=== PATIENT | male | born 1935 | race Caucasian/White ===

== ENCOUNTER 2018-03-19 09:19 | Emergency (ER) | payer MEDICARE ==
[~2018-03-19] VITALS: Ht 180.3 cm; Wt 62.1 kg
[~2018-03-19 09:19] MED LIST: CRESTOR20 MG PO; NORVASC5 MG PO; PLAVIX75 MG PO
--- OUTSIDE RECORDS SUMMARY | 2018-03-19 09:22 | XMS REPORT | Clinical Summary ---
Author Author [place] [facility] Address Unknown Phone Unavailable Care Team Providers Care Center Lead Consultant Name Role Phone Bee Alberto MD PCP Allergies Active Allergy Reactions Severity Noted Date Comments Codeine Itching 01/01/2017 Current Medications Prescription Sig. Disp. Refills Start End Date Status Date fluconazole (DIFLUCAN) Take 1 tablet (200 mg 30 tablet 11 02/04/20 Active 200 MG tablet total) by mouth daily for 17 30 days. ciprofloxacin HCl (CIPRO) Take 1 tablet (250 mg 90 tablet 3 09/28/20 Active 250 MG tablet total) by mouth daily for 17 90 days. ciprofloxacin HCl (CIPRO) Take 1 tablet (250 mg 90 tablet 3 02/21/20 09/28/20 Discontin 250 MG tablet total) by mouth daily for 17 17 ued 90 days. Active Problems Problem Noted Date AAA (abdominal aortic aneurysm) 01/01/2017 Essential hypertension 12/30/2016 Chest pain 12/28/2016 Ruptured abdominal aortic aneurysm 12/28/2016 Saccular aneurysm 12/28/2016 AAA (abdominal aortic aneurysm, ruptured) 12/28/2016 Acute respiratory insufficiency, postoperative 12/28/2016 Postoperative anemia due to acute blood loss 12/28/2016 Renal insufficiency 12/28/2016 Postoperative pain 12/28/2016 Encounters Date Type Specialty Care Team Description 10/08/2017 Documentation Infectious Diseases Ewa Granados RN 09/28/2017 Orders Only Infectious Diseases Ewa Granados RN 07/06/2017 Documentation Infectious Diseases Ewa Granados RN after 03/18/2017 Immunizations Name Dates Previously Given Next Due Influenza, Unspecified 11/30/2016 Family History Relation Name Status Comments Mother Social History Tobacco Use Types Packs/Day Years Used Date Never Smoker Alcohol Use Drinks/Week oz/Week Comments No Sex Assigned at Date Recorded Not on file Last Filed Vital Signs Not on file Plan of Treatment Health Maintenance Due Date Last Done Comments SHINGRIX VACCINE (#1) 1983 ZOSTER VACCINE 1993 PNEUMOCOCCAL 1998 POLYSACCHARIDE VACCINE AGE 65 AND OVER PNEUMOCOCCAL-13 1998 INFLUENZA VACCINE 05/19/2018 11/30/2016 Implants Implanted Type Area Credit Underwriter Device Expiration Model / Identifier Date Serial / Lot Pacemaker Pacemaker Stent Stent Chamber Sgl Martin Dry Suct 1wy Vlv Surgical N/A: N/A TELEFLEX S 1100 Adlt Pedi - [id number] Implants; MEDICAL [id number] / Implanted: 12/28/2016 (Quantity not Expanders; / on file) Extenders; Surgical Wires Graft Vasclr Gelweave Str Plystr Vascular N/A: N/A SULZER VASCUTEK 100205 / 60cm 24mm - [id number] Graft / Implanted: Qty: 1 on 12/28/2016 by [id number] Paola Jacques MD [id number] [place] Perph Vasclr Ptfe [id number] Vascular N/A: N/A BARD PERIPHERAL 244220 / 1.65mm - [id number] Graft VASCULAR / Implanted: Qty: 1 on 12/28/2016 by Paola Jacques MD Results Not on fileafter 03/18/2017 Insurance Payer Benefit Subscriber ID Type Phone Address Plan / Group MEDICARE MEDICARE xxxxxxxxxx Medicare [place] PART A AND B AARP AARP xxxxxxxxxxx Commercial SUPPLEMENT
[2018-03-19 10:42] LABS: BASOPHILS # (AUTO) 0.1 (0.0-0.1); BASOPHILS % 0.6 % (0.0-1.0); EOSINOPHILS # (AUTO) 0.3 (0.0-0.4); EOSINOPHILS % 2.8 % (0.0-6.0); HEMATOCRIT 38.2 % (38.2-49.6); HEMOGLOBIN 12.8 g/dL (14.0-18.0); LYMPHOCYTES # (AUTO) 3.5 (1.0-3.2); LYMPHOCYTES % 36.4 % (18.0-39.1); MEAN CORPUSCULAR HEMOGLOBIN 32.7 pg (28-32); MEAN CORPUSCULAR HGB CONC 33.5 g/dL (31-35); MEAN CORPUSCULAR VOLUME 97.7 fL (81-99); MONOCYTES # (AUTO) 1.2 (0.2-0.8); MONOCYTES % 12.2 % (4.4-11.3); NEUTROPHILS # (AUTO) 4.6 (2.1-6.9); NEUTROPHILS % 47.6 % (38.7-80.0); PLATELET COUNT 179 x10e3/uL (140-360); RED BLOOD COUNT 3.91 x10e6/uL (4.3-5.7); RED CELL DISTRIBUTION WIDTH 14.2 % (11.7-14.4)
[2018-03-19 10:51] LABS: BILIRUBIN,URINE NEGATIVE (NEGATIVE); CLARITY,URINE CLEAR (CLEAR); COLOR,URINE YELLOW (YELLOW); KETONES,URINE NEGATIVE (NEGATIVE); LEUKOCYTE ESTERASE ,URINE NEGATIVE (NEGATIVE); NITRITE,URINE NEGATIVE (NEGATIVE); PROTEIN,URINE DIPSTICK NEGATIVE (NEGATIVE); URINE UROBILINOGEN 0.2 mg/dL (0.2 - 1)
[2018-03-19 10:54] LABS: INR 1.14; PROTHROMBIN TIME 13.7 seconds (11.9-14.5)
[2018-03-19 10:55] LABS: PARTIAL THROMBOPLASTIN TIME 34.8 seconds (23.8-35.5)
[2018-03-19 11:03] LABS: ALBUMIN 4.3 g/dL (3.5-5.0); ALBUMIN/GLOBULIN RATIO 1.1 (0.8-2.0); ANION GAP 14.7 mmol/L (8-16); CALCIUM 10.3 mg/dL (8.4-10.2); CREATININE, SERUM 1.39 mg/dL (0.72-1.25); POTASSIUM 3.7 mmol/L (3.5-5.1)
[2018-03-19 11:06] LABS: BACTERIA,URINE RARE /HPF; EPITHELIAL CELLS,URINE RARE /LPF; WBC,URINE (MAN) 0-5 /HPF (0-5)
[2018-03-19 11:11] LABS: DIGOXIN 0.92 ng/mL (0.8-2.0)
[2018-03-19] MEDS ORDERED: SODIUM CHLORIDE 0.9% 1000ML 1,000 ML IV STA (12:44)
[2018-03-19] MEDS ORDERED: SODIUM CHLORIDE 0.9% 50ML 50 ML ONE (14:05)
[2018-03-19] MEDS ORDERED: IOPAMIDOL 370 MG/ML 200 ML INFUS..BTL INJ ONE (14:06)
[2018-03-19] MEDS ORDERED: SODIUM CHLORIDE 0.9% 250ML 250 ML ONE (14:14)
--- NOTE | 2018-03-19 16:22 | Diagnostic Imaging Report ---
CT UROGRAM Indication: Hematuria COMPARISON: None TECHNIQUE: Thin section helical scan through the abdomen and pelvis before and after the intravenous administration of 100 cc of low osmolar, non-ionic contrast by dynamic enhanced scanning protocol. Delayed images were obtained through the collecting system, ureters and bladder. 3-D reformations were performed on a separate workstation. RADIATION DOSE: Total DLP: 706.09 mGy*cm Estimated effective dose: (DLP x 0.015 x size factor) mSv CTDIvol has been reviewed. It is below the limits set by the Radiation Protocol Committee (RPC). Findings: Lung Bases: Diffusely hyperinflated with paraseptal honeycombing and interlobular septal thickening suggestive of early fibrosis. There is cylindrical bronchiectasis and mild bronchial wall thickening suggestive of chronic bronchitis. Pacemaker wires are present in the right atrium, right ventricle, and coronary sinus. The heart is mildly enlarged with heavy calcifications in the coronary arteries. Liver: Normal attenuation. Multiple low attenuating lesions measure up to 12 mm and are suggestive of cysts. The liver capsule is mildly lobulated in contour. Gallbladder: Absent. No biliary ductal dilatation. Pancreas: Normal attenuation without mass or ductal dilatation. Spleen: Normal attenuation and size without mass. Adrenal Glands: Mild thickening of the glands without mass Pelvis: Bowel: The stomach is normal. Small bowel and large bowel are normal in diameter with normal wall thickness. There are chain sutures at the sigmoid colon. Moderate burden of stool in the distal sigmoid colon/rectum. No associated inflammation or lymphadenopathy. The appendix is not visualized and may be absent or collapsed.. Lymph nodes: No enlarged abdominal or retroperitoneal lymph nodes. Aorta: There are calcifications throughout the aorta. An aortobifemoral bypass graft is present and is patent. Bones: Visualized portions of median sternotomy are well healed. There is wedging of the T10 and T11 vertebral bodies. No focal osseous lesions. A bone island in the left pedicle of L5 measures 9 mm.. Kidneys, ureters and bladder: Unenhanced series: Right Kidney : No calculus in the collecting system. There are renal vascular calcifications in the hilum. No soft tissue mass. Left Kidney: Absent. No mass in the nephrectomy bed. Bladder: Well distended and is normal. The prostate gland and seminal vesicles are absent.. Contrast enhanced series: Right Kidney: Normal enhancement. 2 low attenuating lesions in the anterior interpolar cortex and one low attenuating lesion in the lower pole measure less than 5 mm and have the appearance of cysts. There are no enhancing lesions. Left Kidney: Absent. No evidence of mass in the nephrectomy bed.. Excretory phase: The right renal collecting system is well opacified without intraluminal filling defect. The proximal and mid right ureter are opacified without narrowing or intraluminal filling defect. The distal ureters are not opacified. There is no bladder wall thickening or intraluminal filling defect in the bladder. IMPRESSION: 1. No evidence of renal calculus. 2. Tiny nonenhancing lesions in the right kidney are suggestive of cysts. 3. No filling defects in the right renal collecting system or opacified portion of the ureter to explain hematuria. 4. No mural thickening or intraluminal filling defect in the bladder to explain hematuria. Further characterization with cystoscopy is recommended. 5. Status post left nephrectomy without evidence of tumor recurrence or metastasis. 6. Aortobifemoral bypass graft is patent. Cardiomegaly and pacemaker wires as described above. Significant atherosclerosis. 7. Status post cholecystectomy. Normal biliary tree. 8. Low attenuating hepatic lesions have the appearance of cysts. 9. Status post radical prostatectomy. Postoperative changes of the sigmoid colon with moderate stool burden. 10. COPD and chronic bronchitis. Thank you for your referral. Signed by: Dr. Davi Winslow MD on 03/19/2018 4:18 PM
== END 2018-03-19 17:51 | disposition home or self-care (01) ==
LOC: ER 09:19
DX: R31.29 Other microscopic hematuria (principal); I10 Essential (primary) hypertension; I51.9 Heart disease, unspecified; Z85.46 Personal history of malignant neoplasm of prostate; Z85.51 Personal history of malignant neoplasm of bladder
CPT/HCPCS: 36415; 74178; 80053; 80162; 81001; 82150; 83690; 85025; 85610; 85730; 87086; 93005; 99284; J7030; J7050; Q9967

== ENCOUNTER → 2018-04-29 | Day surgery (SDC) | payer MEDICARE ==
[2018-04-27 13:56] LABS: BASOPHILS # (AUTO) 0.1 (0.0-0.1); BASOPHILS % 0.6 % (0.0-1.0); EOSINOPHILS # (AUTO) 0.3 (0.0-0.4); EOSINOPHILS % 3.7 % (0.0-6.0); HEMATOCRIT 35.3 % (38.2-49.6); HEMOGLOBIN 11.8 g/dL (14.0-18.0); LYMPHOCYTES # (AUTO) 2.9 (1.0-3.2); LYMPHOCYTES % 34.8 % (18.0-39.1); MEAN CORPUSCULAR HEMOGLOBIN 32.3 pg (28-32); MEAN CORPUSCULAR HGB CONC 33.4 g/dL (31-35); MEAN CORPUSCULAR VOLUME 96.7 fL (81-99); MONOCYTES % 12.4 % (4.4-11.3); NEUTROPHILS # (AUTO) 4.1 (2.1-6.9); NEUTROPHILS % 48.4 % (38.7-80.0); PLATELET COUNT 140 x10e3/uL (140-360); RED BLOOD COUNT 3.65 x10e6/uL (4.3-5.7); RED CELL DISTRIBUTION WIDTH 14.6 % (11.7-14.4)
[2018-04-27 14:29] LABS: ANION GAP 12.3 mmol/L (8-16); CALCIUM 9.9 mg/dL (8.4-10.2); CREATININE, SERUM 1.27 mg/dL (0.72-1.25); POTASSIUM 4.3 mmol/L (3.5-5.1)
--- NOTE | 2018-04-27 15:20 | Diagnostic Imaging Report ---
PROCEDURE: Frontal and lateral views of the chest. COMPARISON: None. INDICATIONS: PREOPERATIVE CHEST XRAY FOR BLADDER SURGERY FINDINGS: Lines/tubes: Multilead left upper chest cardiac device. Lungs: The lungs are well inflated and grossly clear. There is no evidence of consolidation or pulmonary edema. Pleura: There is no pleural effusion or pneumothorax. Heart and mediastinum: Borderline to mildly enlarged cardiac silhouette. Bones: No acute bony abnormality. Generalized osteopenia. Degenerative changes in the thoracic spine. Anterior wedging of a lower thoracic vertebral body (probably the T12 vertebral body), consistent with age-indeterminate compression deformity. Midline sternotomy wires. IMPRESSION: 1. No acute cardiopulmonary abnormalities. Kareem Cobian M.D. Dictated by: Kareem Cobian M.D. on 04/27/2018 at 15:24 Electronically approved by: Kareem Cobian M.D. on 04/27/2018 at 15:24
[~2018-04-29] MED LIST changes: +ACETAMINOPHEN 1000 MG/100 ML IV ONE; +ASPIR 8181 MG PO; +BELLADONNA/OPIUM 30 MG SUPP RC ONE; +CEFTRIAXONE SOD 1 GM VIAL ONE; +CIPRO500 MG PO; +DIFLUCAN200 MG PO; +DIGOXIN125 MCG PO; +FENTANYL CITRATE/PF 100MCG/2 ML INJ ONE; +HYDRALAZINE HCL25 MG PO; +IOPAMIDOL 300MG/ML 50ML INFUS..BTL IV ONE; +LIDOCAINE HCL 2% LOCAL INJ 5 ML SDV VIAL INJ ONE; +LIPITOR20 MG PO; +LOPRESSOR25 MG PO; +OMEGA-31000 MG PO; +ONDANSETRON HCL INJ 2 MG/ML VIAL ONE; +PHENYLEPHRINE HCL 1% 10 MG/ML VIAL ONE; +PROPOFOL IV EMULSION 10 MG/ML 20 ML VIAL ONE; +SEVOFLURANE INHAL SOLN 250 ML PEN BTL ONE
--- NOTE | 2018-06-17 01:23 | Operative Report ---
DATE OF PROCEDURE: April 29, 2018 PREOPERATIVE DIAGNOSIS: Gross hematuria. POSTOPERATIVE DIAGNOSES 1. Left lateral bladder cancer, approximately 3 to 4 cm in size. 2. Gross hematuria. OPERATIONS PERFORMED 1. Cystourethroscopy with bilateral ureteral catheterization and retrograde ureteropyelography (separate procedure performed for the hematuria). 2. Interpretation of retrograde ureteropyelography. 3. Cystourethroscopy with transurethral resection of medium-sized bladder tumor. ANESTHESIA: General. COMPLICATIONS: None. CLINICAL SUMMARY: Jaylan Blackwell is an 82-year-old man who had prior bladder cancer. The patient has undergone previous BCG immunotherapy. The patient had a prior left nephrectomy due to vascular problems associated with the patient's abdominal aortic aneurysm. The patient is also status post radical retropubic prostatectomy. The patient has gross hematuria and is brought to the operating room for evaluation. He is aware of the risks of bleeding, infection, injury to adjacent structures, need for additional procedures, and elected to proceed. OPERATIVE PROCEDURE IN DETAIL: Informed consent was verified. Jaylan Blackwell was properly identified, taken to the operating room, placed on the cystoscopy table in supine position. Anesthesia was uneventfully begun. The patient was then carefully and gently repositioned in dorsal lithotomy position with all pressure points well padded. His genitalia were prepared and draped in usual sterile fashion. The 22.5-Austrian cystoscope sheath with visual obturator in place was atraumatically inserted into the patient's urethra. It was guided down the unremarkable distal urethra through the normal sphincteric region through the open urethrovesical anastomosis. Initially, the patient's bladder with panendoscopy revealed normally positioned and configured ureteral orifices. Grade 2 trabeculations and tumor in the left lateral wall. An 8-Austrian catheter was used to cannulate each ureter and retrograde ureteropyelography was performed. INTERPRETATION OF RETROGRADE URETEROPYELOGRAPHY: Contrast was instilled in the retrograde fashion bilaterally. On the right hand side, there were no tumors, no stones and no diverticula. Unobstructed drainage was observed. The left hand side exhibited that two-thirds of the ureter has a ureteral stump. No suspicious lesions were identified in this ureteral stump. Cold cup biopsy forceps were then utilized to resect the bladder tumors present in the left lateral wall. There were actually 3 bladder tumors in a large patch extending approximately 3 to 4 cm. Once all tumors were excised with the cold cup biopsies, Bryon electrode was utilized to fulgurate the base and the surrounding margins. Excellent hemostasis was obtained. Patient's bladder was drained and he was uneventfully reversed from anesthesia and taken to recovery room in stable condition. There were no complications during the procedure. He tolerated the procedure well. Explicit postoperative instructions were given. We will plan on returning the patient in the office in approximately 1-1/2 months. He will need a second-look cystoscopy. Job#: [id number] BERRY
== END | disposition home or self-care (01) ==
LOC: OR 05:19
PROVIDERS: ATTEND Urology
DX: C67.2 Malignant neoplasm of lateral wall of bladder (principal); C61 Malignant neoplasm of prostate; N32.89 Other specified disorders of bladder; N28.1 Cyst of kidney, acquired; N39.41 Urge incontinence; N50.0 Atrophy of testis; Z90.5 Acquired absence of kidney; Z90.79 Acquired absence of other genital organ(s); Z98.0 Intestinal bypass and anastomosis status; I10 Essential (primary) hypertension; I71.4 Abdominal aortic aneurysm, without rupture; I48.91 Unspecified atrial fibrillation; I25.810 Atherosclerosis of coronary artery bypass graft(s) without angina pectoris; Z88.6 Allergy status to analgesic agent; Z01.812 Encounter for preprocedural laboratory examination; Z01.818 Encounter for other preprocedural examination; Z79.82 Long term (current) use of aspirin; Z79.02 Long term (current) use of antithrombotics/antiplatelets; Z87.442 Personal history of urinary calculi; Z95.1 Presence of aortocoronary bypass graft; Z95.0 Presence of cardiac pacemaker; Z95.5 Presence of coronary angioplasty implant and graft; Z87.891 Personal history of nicotine dependence
CPT/HCPCS: 36415; 52005; 52235; 71046; 74420; 80048; 85025; 88305; C1758; J0696; J2001; J2370; J2405; Q9967

== ENCOUNTER → 2020-04-02 | Day surgery (SDC) | payer MEDICARE, OTHER ==
[2020-03-29 14:46] LABS: BASOPHILS # (AUTO) 0.1 (0.0-0.1); BASOPHILS % 0.6 % (0.0-1.0); EOSINOPHILS # (AUTO) 0.3 (0.0-0.4); EOSINOPHILS % 2.4 % (0.0-6.0); HEMATOCRIT 39.8 % (38.2-49.6); HEMOGLOBIN 12.6 g/dL (14.0-18.0); LYMPHOCYTES # (AUTO) 4.6 (1.0-3.2); LYMPHOCYTES % 43.3 % (18.0-39.1); MEAN CORPUSCULAR HEMOGLOBIN 30.4 pg (28-32); MEAN CORPUSCULAR HGB CONC 31.7 g/dL (31-35); MEAN CORPUSCULAR VOLUME 95.9 fL (81-99); MONOCYTES # (AUTO) 1.4 (0.2-0.8); MONOCYTES % 13.6 % (4.4-11.3); NEUTROPHILS # (AUTO) 4.2 (2.1-6.9); NEUTROPHILS % 39.7 % (38.7-80.0); PLATELET COUNT 112 x10e3/uL (140-360); RED BLOOD COUNT 4.15 x10e6/uL (4.3-5.7); RED CELL DISTRIBUTION WIDTH 15.7 % (11.7-14.4)
--- NOTE | 2020-03-29 15:39 | Diagnostic Imaging Report ---
EXAMINATION: CHEST 2 VIEWS INDICATION: Pre-operative COMPARISON: None FINDINGS: LINES/TUBES:Left chest pacer. LUNGS:The lungs are hyperinflated. There is perihilar fullness and indistinctness of the pulmonary vasculature. PLEURA:No pleural effusion or pneumothorax. MEDIASTINUM:The cardiomediastinal silhouette appears normal in size and shape. Atherosclerotic calcifications of the thoracic aorta. BONES/SOFT TISSUES:No acute osseous injury. Sternotomy wires in place. Degenerative changes of the spine. ABDOMEN:No free air under the diaphragm. Status post cholecystectomy. IMPRESSION: No focal pneumonia. Hyperinflated lungs and mild pulmonary interstitial edema. Signed by: Zoya Luna MD on 03/29/2020 3:35 PM
[~2020-04-02] MED LIST changes: -ACETAMINOPHEN 1000 MG/100 ML IV ONE; +B&O 60MG R/S 60 MG SUPP PR ONE; -BELLADONNA/OPIUM 30 MG SUPP RC ONE; +BENICAR20 MG PO; -CEFTRIAXONE SOD 1 GM VIAL ONE; +CEFTRIAXONE SOD 1 GM/NS 50 ML 50 ML IV ONE; +ETOMIDATE 2 MG/ML 10 ML INJ IV ONE; +LYRICA150 MG PO; -ONDANSETRON HCL INJ 2 MG/ML VIAL ONE; +ONDANSETRON HCL INJ 2MG/ML 2ML 2 MG/ML VIAL ONE; -PROPOFOL IV EMULSION 10 MG/ML 20 ML VIAL ONE
[2020-04-02 09:45] VITALS: BP 137/84
--- NOTE | 2020-05-08 04:02 | Operative Report ---
DATE OF PROCEDURE: 04/02/2020 SURGEON: Ra Castellon MD PREOPERATIVE DIAGNOSES: 1. Recurrent bladder cancer. 2. Microhematuria. POSTOPERATIVE DIAGNOSES: 1. Recurrent bladder cancer. 2. Microhematuria. OPERATIONS PERFORMED: 1. Cystourethroscopy with bilateral ureteral catheterization and retrograde ureteropyelography (separate procedure performed for the microhematuria). 2. Interpretation of retrograde ureteropyelography. 3. Cystourethroscopy with transurethral resection of medium-sized approximately 3 cm bladder tumor (separate procedure performed for the tumor). ANESTHESIA: General. COMPLICATIONS: None. CLINICAL SUMMARY: Jaylan Blackwell is an 84-year-old man with recurrent bladder cancer. He has had a left nephrectomy as well as a radical retropubic prostatectomy. He is brought for the above procedures to manage a tumor found on surveillance cystoscopy. He is aware of the risks of bleeding, infection, injury to adjacent structures, need for additional procedures and elected to proceed. OPERATIVE PROCEDURE IN DETAIL: Informed consent was verified. Jaylan Blackwell was properly identified and taken to the operating room, placed on the cystoscopy table in supine position. Anesthesia was uneventfully begun. The patient was then carefully and gently repositioned in dorsal lithotomy position with all pressure points were padded. His genitalia were prepared and draped in usual sterile fashion. Cystoscope sheath with the visual obturator in place, was atraumatically inserted into the patient's urethra. It was guided down to the relatively unremarkable urethra through normal sphincteric region, through an open urethrovesical anastomosis. There was some tissue posteriorly just inside the bladder neck, but it appears to be mostly scar and does not seem to be obstructing. Panendoscopy revealed grade 2-3 trabeculations in the tumor anteriorly. This tumor was partially resected with cold cup biopsy forceps for histopathology analysis and then the Bugbee electrode was then utilized to vaporize the remaining of the tumor and fulgurate the base. Hemostasis was achieved. Ureteral catheter was used to cannulate each ureter and retrograde ureteropyelograms were performed. Interpretation of retrograde ureteropyelography contrast was instilled in a retrograde fashion bilaterally. The right side was unremarkable except for some tortuosity of the ureter. There was unobstructed drainage noted and there were no suspicious lesions. The left side exhibited a blind-ending ureter to the prior nephrectomy, but there were no filling defects within the ureter. An unobstructed drainage was observed fluoroscopically bilaterally. The patient's bladder was drained. He was uneventfully reversed from anesthesia and taken to recovery room in stable condition. There were no complications to the procedure. He tolerated the procedure well. Explicit postop instructions were given and we will follow the patient up in the office and of course, on a long-term basis. MD NITHYA Wiggins/TONO /[id number]
== END | disposition home or self-care (01) ==
LOC: OR 05:25
PROVIDERS: ATTEND Urology
DX: C67.9 Malignant neoplasm of bladder, unspecified (principal); N32.89 Other specified disorders of bladder; I25.10 Atherosclerotic heart disease of native coronary artery without angina pectoris; I48.91 Unspecified atrial fibrillation; Z88.6 Allergy status to analgesic agent; Z01.810 Encounter for preprocedural cardiovascular examination; Z01.812 Encounter for preprocedural laboratory examination; Z01.818 Encounter for other preprocedural examination; Z11.59 Encounter for screening for other viral diseases; Z79.02 Long term (current) use of antithrombotics/antiplatelets; Z90.5 Acquired absence of kidney; Z90.79 Acquired absence of other genital organ(s); Z95.5 Presence of coronary angioplasty implant and graft; Z95.0 Presence of cardiac pacemaker
CPT/HCPCS: 36415; 52005; 52235; 71046; 74420; 85025; 87635; 88305; 93005; C1758; J0696; J2001; J2370; J2405; J3010; Q9967; 88307; U0002

== ENCOUNTER 2023-01-02 21:25 | Inpatient (IN) | payer MEDICARE ==
[~2023-01-02] VITALS: Ht 180.3 cm; Wt 62.4 kg
[~2023-01-02 21:25] MED LIST changes: -B&O 60MG R/S 60 MG SUPP PR ONE; -CEFTRIAXONE SOD 1 GM/NS 50 ML 50 ML IV ONE; -ETOMIDATE 2 MG/ML 10 ML INJ IV ONE; -IOPAMIDOL 300MG/ML 50ML INFUS..BTL IV ONE; -LIDOCAINE HCL 2% LOCAL INJ 5 ML SDV VIAL INJ ONE; -ONDANSETRON HCL INJ 2MG/ML 2ML 2 MG/ML VIAL ONE; -PHENYLEPHRINE HCL 1% 10 MG/ML VIAL ONE; -SEVOFLURANE INHAL SOLN 250 ML PEN BTL ONE
[2023-01-02 21:49] LABS: CLARITY,URINE CLEAR (CLEAR); COLOR,URINE YELLOW (YELLOW); LEUKOCYTE ESTERASE ,URINE NEGATIVE (NEGATIVE); NITRITE,URINE NEGATIVE (NEGATIVE)
[2023-01-02 21:50] LABS: KETONES,URINE NEGATIVE (NEGATIVE); PROTEIN,URINE DIPSTICK 1+ (NEGATIVE); URINE UROBILINOGEN 0.2 mg/dL (0.2 - 1)
[2023-01-02 21:55] LABS: BACTERIA,URINE RARE /HPF; EPITHELIAL CELLS,URINE FEW /LPF; WBC,URINE (MAN) 0-5 /HPF (0-5)
[2023-01-02 22:06] LABS: BASOPHILS # (AUTO) 0.1 (0.0-0.1); BASOPHILS % 0.8 % (0.0-1.0); EOSINOPHILS # (AUTO) 0.3 (0.0-0.4); EOSINOPHILS % 3.2 % (0.0-6.0); LYMPHOCYTES # (AUTO) 2.9 (1.0-3.2); LYMPHOCYTES % 31.6 % (18.0-39.1); MEAN CORPUSCULAR HEMOGLOBIN 23.3 pg (28-32); MEAN CORPUSCULAR HGB CONC 27.6 g/dL (31-35); MEAN CORPUSCULAR VOLUME 84.5 fL (81-99); MONOCYTES # (AUTO) 1.5 (0.2-0.8); MONOCYTES % 16.3 % (4.4-11.3); NEUTROPHILS # (AUTO) 4.4 (2.1-6.9); NEUTROPHILS % 47.7 % (38.7-80.0); PLATELET COUNT 177 x10e3/uL (140-360); RED BLOOD COUNT 2.96 x10e6/uL (4.3-5.7); RED CELL DISTRIBUTION WIDTH 20.5 % (11.7-14.4)
[2023-01-02 22:07] LABS: HEMOGLOBIN 7.1 g/dL (14.0-18.0)
[2023-01-02 22:24] LABS: ALBUMIN 3.5 g/dL (3.5-5.0); ALBUMIN/GLOBULIN RATIO 1.1 (0.8-2.0); ANION GAP 15.5 mmol/L (8-16); CALCIUM 9.4 mg/dL (8.4-10.2); CREATININE, SERUM 1.6 mg/dL (0.72-1.25)
[2023-01-02 22:25] LABS: POTASSIUM 5.5 mmol/L (3.5-5.1)
[2023-01-02] MEDS ORDERED: ALBUTEROL SULF 0.083% NEB SOLN 3 ML NEB NEB STA (22:27)
[2023-01-02] MEDS ORDERED: SODIUM BICARBONATE 8.4% 50 ML VIAL IV STA (22:27)
[2023-01-02] MEDS ORDERED: DEXTROSE 50% SYRINGE 50 ML IV STA (22:27)
[2023-01-02] MEDS ORDERED: INSULIN REGULAR, HUMAN 100 UNIT/1 ML IV ONE (22:30)
[2023-01-02] MEDS ORDERED: SODIUM CHLORIDE 0.9% 1000ML 1,000 ML IV ONE (22:30)
[2023-01-02] MEDS ORDERED: FUROSEMIDE INJ 10 MG/ML 4 ML VIAL IV ONE (22:30)
[2023-01-02] MEDS ORDERED: CALCIUM GLUCONATE 10% INJ 9.3 MEQ in SODIUM CHLORIDE 0.9% 100 ML IV ONE (22:30)
[2023-01-02] MEDS ORDERED: SODIUM CHLORIDE 0.9% 100 ML ONE (22:51)
[2023-01-02] MEDS ORDERED: CALCIUM GLUC 1 G/50 ML NACL 50 ML IV ONE ×2 (22:52→23:10)
[2023-01-02] MEDS ORDERED: SODIUM BICARBONATE 8.4% SYRING 100 ML ONE (22:52)
[2023-01-02] MEDS ORDERED: SODIUM CHLORIDE FLUSH 10 ML SYR INJ PRN (23:00)
[2023-01-02] MEDS ORDERED: ONDANSETRON HCL INJ 2MG/ML 2ML 2 MG/ML VIAL IV PRN (23:00)
[2023-01-03] MEDS ORDERED: PREGABALIN 75 MG CAP PO ONE (01:00)
[2023-01-03] MEDS ORDERED: PREGABALIN 50 MG CAP ONE (01:14)
[2023-01-03 05:38] LABS: BASOPHILS # (AUTO) 0.1 (0.0-0.1); BASOPHILS % 0.7 % (0.0-1.0); EOSINOPHILS # (AUTO) 0.2 (0.0-0.4); EOSINOPHILS % 2.2 % (0.0-6.0); HEMATOCRIT 22.9 % (38.2-49.6); LYMPHOCYTES # (AUTO) 2.4 (1.0-3.2); LYMPHOCYTES % 32.9 % (18.0-39.1); MEAN CORPUSCULAR HEMOGLOBIN 23.4 pg (28-32); MEAN CORPUSCULAR HGB CONC 27.9 g/dL (31-35); MEAN CORPUSCULAR VOLUME 83.6 fL (81-99); MONOCYTES # (AUTO) 1.3 (0.2-0.8); MONOCYTES % 17.9 % (4.4-11.3); NEUTROPHILS # (AUTO) 3.4 (2.1-6.9); RED BLOOD COUNT 2.74 x10e6/uL (4.3-5.7); RED CELL DISTRIBUTION WIDTH 20.7 % (11.7-14.4)
[2023-01-03 05:45] LABS: HEMOGLOBIN 6.4 g/dL (14.0-18.0)
[2023-01-03] MEDS ORDERED: SODIUM CHLORIDE 0.9% 250ML 250 ML IV ONE (05:45)
[2023-01-03 05:46] LABS: PLATELET COUNT 143 x10e3/uL (140-360)
[2023-01-03 06:04] LABS: ALBUMIN 3.1 g/dL (3.5-5.0); ALBUMIN/GLOBULIN RATIO 1.1 (0.8-2.0); ALKALINE PHOSPHATASE 42 IU/L (40-150); ANION GAP 12.9 mmol/L (8-16); BLOOD UREA NITROGEN 25 mg/dL (7-26); BUN/CREATININE RATIO 17 (6-25); CALCIUM 9.3 mg/dL (8.4-10.2); CARBON DIOXIDE 35 mmol/L (22-29); CHLORIDE 100 mmol/L (98-107); CREATININE, SERUM 1.43 mg/dL (0.72-1.25); GLUCOSE 95 mg/dL (74-118); POTASSIUM 3.9 mmol/L (3.5-5.1); SODIUM 144 mmol/L (136-145)
[2023-01-03 06:06] LABS: ALANINE AMINOTRANSFERASE < 6 IU/L (0-55)
[2023-01-03] MEDS ORDERED: PREGABALIN 75 MG CAP PO SCH (09:00)
[2023-01-03] MEDS ORDERED: FUROSEMIDE40 MG PO (09:37)
[2023-01-03] MEDS ORDERED: DIOVAN80 MG PO ×2 (09:37→12:39)
[2023-01-03] MEDS ORDERED: MIDODRINE HCL2.5 MG PO (09:40)
[2023-01-03] MEDS ORDERED: ASPIRIN81 MG PO (09:40)
[2023-01-03] MEDS ORDERED: AMLODIPINE BESYL5 MG PO (09:40)
[2023-01-03 11:00] VITALS: BP 124/58
[2023-01-03 12:32] VITALS: BP 124/58
[2023-01-03 14:08] VITALS: BP 124/58
[2023-01-03 20:00] VITALS: BP 127/51
[2023-01-03] MEDS: PREGABALIN 50 MG CAP PO SCH (21:45)
[2023-01-03] MEDS: ATORVASTATIN 20 MG TAB PO SCH (21:46)
[2023-01-04] VITALS (8 sets, daily range): BP systolic 126–142; BP diastolic 55–68
[2023-01-04 05:18] LABS: ANION GAP 13.2 mmol/L (8-16); CREATININE, SERUM 1.33 mg/dL (0.72-1.25); POTASSIUM 4.2 mmol/L (3.5-5.1)
[2023-01-04 08:04] LABS: HEMATOCRIT 30.4 % (38.2-49.6); HEMOGLOBIN 8.8 g/dL (14.0-18.0); MEAN CORPUSCULAR HEMOGLOBIN 24.9 pg (28-32); MEAN CORPUSCULAR HGB CONC 28.9 g/dL (31-35); MEAN CORPUSCULAR VOLUME 86.1 fL (81-99); PLATELET COUNT 139 x10e3/uL (140-360); RED BLOOD COUNT 3.53 x10e6/uL (4.3-5.7); RED CELL DISTRIBUTION WIDTH 20.3 % (11.7-14.4)
[2023-01-04 08:40] LABS: EOSINOPHILS % (MANUAL) 3 % (0-7); LYMPHOCYTES % (MANUAL) 34 % (19-48); MONOCYTES % (MANUAL) 19 % (3.4-9.0); NEUTROPHILS % (MANUAL) 43 % (40-74); PLATELET ESTIMATE ADEQUATE; PLATELET MORPHOLOGY COMMENT NORMAL; RBC MORPHOLOGY COMMENT NORMAL
[2023-01-04] MEDS: PREGABALIN 50 MG CAP PO SCH ×2 (08:58→17:09)
[2023-01-04] MEDS: ATORVASTATIN 20 MG TAB PO SCH (21:58)
[2023-01-05] VITALS (7 sets, daily range): BP systolic 129–143; BP diastolic 51–60
[2023-01-05 08:25] LABS: % IRON SATURATION 2 % (15-50); IRON 11 ug/dL (65-175); TOTAL IRON BINDING CAPACITY 447 ug/dL (261-478); TRANSFERRIN 319 mg/dL (174-364)
[2023-01-05] MEDS: PREGABALIN 50 MG CAP PO SCH ×2 (08:32→17:11)
[2023-01-05] MEDS ORDERED: ONDANSETRON HCL 4 MG ORAL DISINTEGRATING TAB PO PRN (11:00)
[2023-01-05] MEDS: BUMETANIDE 1 MG TAB PO SCH (12:09)
[2023-01-05] MEDS: IRON SUCROSE 100 MG in SODIUM CHLORIDE 0.9% 100 ML IV SCH (12:09)
[2023-01-05] MEDS ORDERED: SODIUM CHLORIDE 0.9% 250ML 250 ML ONE (12:28)
[2023-01-05 12:41] LABS: CREATININE,URINE RANDOM 84.74 mg/dL (63-166); TOTAL PROTEIN, URINE 19.3 mg/dL (1-14)
[2023-01-05] MEDS ORDERED: PREGABALIN 75 MG CAP PO SCH (17:00)
[2023-01-05] MEDS: ATORVASTATIN 20 MG TAB PO SCH (21:20)
[2023-01-06] VITALS (8 sets, daily range): BP systolic 122–140; BP diastolic 50–59
[2023-01-06 05:34] LABS: BASOPHILS # (AUTO) 0.1 (0.0-0.1); BASOPHILS % 0.8 % (0.0-1.0); EOSINOPHILS # (AUTO) 0.3 (0.0-0.4); EOSINOPHILS % 4.4 % (0.0-6.0); HEMATOCRIT 31.2 % (38.2-49.6); HEMOGLOBIN 8.8 g/dL (14.0-18.0); LYMPHOCYTES # (AUTO) 2.2 (1.0-3.2); LYMPHOCYTES % 33.5 % (18.0-39.1); MEAN CORPUSCULAR HEMOGLOBIN 25.1 pg (28-32); MEAN CORPUSCULAR HGB CONC 28.2 g/dL (31-35); MEAN CORPUSCULAR VOLUME 88.9 fL (81-99); MONOCYTES # (AUTO) 1.2 (0.2-0.8); MONOCYTES % 17.7 % (4.4-11.3); NEUTROPHILS # (AUTO) 2.9 (2.1-6.9); NEUTROPHILS % 43.3 % (38.7-80.0); PLATELET COUNT 141 x10e3/uL (140-360); RED BLOOD COUNT 3.51 x10e6/uL (4.3-5.7); RED CELL DISTRIBUTION WIDTH 21.6 % (11.7-14.4)
[2023-01-06 05:47] LABS: INR 1.19; PROTHROMBIN TIME 15.6 seconds (11.9-14.5)
[2023-01-06 06:00] LABS: ALBUMIN 3.1 g/dL (3.5-5.0); ANION GAP 11.9 mmol/L (8-16); CREATININE, SERUM 1.07 mg/dL (0.72-1.25); POTASSIUM 3.9 mmol/L (3.5-5.1)
[2023-01-06 06:54] LABS: ANISOCYTOSIS MODERATE; HYPOCHROMASIA MODERATE; OVALOCYTES FEW; PLATELET ESTIMATE ADEQUATE; PLATELET MORPHOLOGY COMMENT FEW LARGE; RBC MORPHOLOGY COMMENT ABNORMAL
[2023-01-06] MEDS: PREGABALIN 50 MG CAP PO SCH ×2 (08:54→16:54)
[2023-01-06] MEDS: BUMETANIDE 1 MG TAB PO SCH (08:54)
[2023-01-06] MEDS ORDERED: METOLAZONE 5 MG TAB PO ONE (11:00)
[2023-01-06 11:22] LABS: BODY FLUID APPEARANCE SL.CLOUDY; BODY FLUID COLOR YELLOW
[2023-01-06 11:23] LABS: RBC,BODY FLUID 4000 cells/uL; WBC,BODY FLUID 171 cells/uL
[2023-01-06] MEDS: ALBUTEROL SULF 0.083% NEB SOLN 3 ML NEB NEB PRN ×2 (11:30→19:00)
[2023-01-06 11:45] LABS: LYMPHOCYTES,BODY FLUID 48 %; MONO/MACROPHG,BODY FLUID 40 %; NEUTROPHILS,BODY FLUID 12 %
[2023-01-06] MEDS: BUMETANIDE INJ 0.25MG/ML 4ML VIAL IV SCH ×2 (12:12→21:44)
[2023-01-06] MEDS: IRON SUCROSE 100 MG in SODIUM CHLORIDE 0.9% 100 ML IV SCH (12:15)
[2023-01-06] MEDS: ATORVASTATIN 20 MG TAB PO SCH (21:44)
[2023-01-07] VITALS (7 sets, daily range): BP systolic 116–137; BP diastolic 56–62
[2023-01-07] MEDS: BUMETANIDE INJ 0.25MG/ML 4ML VIAL IV SCH ×3 (05:45→21:24)
[2023-01-07 06:21] LABS: ALBUMIN 3.2 g/dL (3.5-5.0); ANION GAP 12.9 mmol/L (8-16); CALCIUM 9.2 mg/dL (8.4-10.2); CREATININE, SERUM 1.19 mg/dL (0.72-1.25); POTASSIUM 3.9 mmol/L (3.5-5.1)
[2023-01-07] MEDS: ALBUTEROL SULF 0.083% NEB SOLN 3 ML NEB NEB PRN ×3 (06:52→20:20)
[2023-01-07] MEDS: PREGABALIN 50 MG CAP PO SCH ×2 (08:06→18:16)
[2023-01-07] MEDS ORDERED: LIDOCAINE HCL 2% LOCAL INJ 5 ML SDV VIAL INJ ONE (09:19)
[2023-01-07] MEDS ORDERED: SEVOFLURANE INHAL SOLN 250 ML PEN BTL ONE (09:19)
[2023-01-07] MEDS ORDERED: PROPOFOL IV EMULSION 10 MG/ML 20 ML VIAL ONE (09:19)
[2023-01-07] MEDS ORDERED: ONDANSETRON HCL INJ 2MG/ML 2ML 2 MG/ML VIAL ONE (09:19)
[2023-01-07] MEDS ORDERED: POVIDONE IODINE 0.05% 0.05 % ML PO ONE (09:19)
[2023-01-07] MEDS ORDERED: LIDOCAINE HCL 2% LOCAL 20 ML VIAL ONE (11:28)
[2023-01-07] MEDS ORDERED: BUPIVACAINE HCL 0.5% 10ML MPF VIAL INJ ONE (11:28)
[2023-01-07] MEDS ORDERED: TRAMADOL HCL 50 MG TAB PO PRN (11:45)
[2023-01-07] MEDS ORDERED: BACITRACIN ZINC 15 GM OINT ONE (12:44)
[2023-01-07] MEDS ORDERED: ACETAMINOPHEN 1000 MG/100 ML IV PRN (14:00)
[2023-01-07] MEDS: METOLAZONE 5 MG TAB PO SCH (14:40)
[2023-01-07] MEDS: IRON SUCROSE 100 MG in SODIUM CHLORIDE 0.9% 100 ML IV SCH (14:40)
[2023-01-07] MEDS: ATORVASTATIN 20 MG TAB PO SCH (21:24)
[2023-01-08] VITALS (7 sets, daily range): BP systolic 112–131; BP diastolic 53–66
[2023-01-08] MEDS: ALBUTEROL SULF 0.083% NEB SOLN 3 ML NEB NEB PRN ×3 (02:10→13:30)
[2023-01-08] MEDS: BUMETANIDE INJ 0.25MG/ML 4ML VIAL IV SCH (05:50)
[2023-01-08 06:07] LABS: BASOPHILS # (AUTO) 0.1 (0.0-0.1); BASOPHILS % 0.9 % (0.0-1.0); EOSINOPHILS # (AUTO) 0.2 (0.0-0.4); EOSINOPHILS % 3.6 % (0.0-6.0); HEMATOCRIT 31.3 % (38.2-49.6); HEMOGLOBIN 8.9 g/dL (14.0-18.0); LYMPHOCYTES # (AUTO) 1.7 (1.0-3.2); LYMPHOCYTES % 25.6 % (18.0-39.1); MEAN CORPUSCULAR HEMOGLOBIN 25.1 pg (28-32); MEAN CORPUSCULAR HGB CONC 28.4 g/dL (31-35); MEAN CORPUSCULAR VOLUME 88.2 fL (81-99); MONOCYTES % 15.2 % (4.4-11.3); NEUTROPHILS # (AUTO) 3.7 (2.1-6.9); NEUTROPHILS % 54.6 % (38.7-80.0); PLATELET COUNT 146 x10e3/uL (140-360); RED BLOOD COUNT 3.55 x10e6/uL (4.3-5.7); RED CELL DISTRIBUTION WIDTH 22.7 % (11.7-14.4)
[2023-01-08 06:45] LABS: ANION GAP 13.7 mmol/L (8-16); CALCIUM 9.3 mg/dL (8.4-10.2); CREATININE, SERUM 1.32 mg/dL (0.72-1.25); POTASSIUM 3.7 mmol/L (3.5-5.1)
[2023-01-08 08:04] LABS: PLATELET ESTIMATE SLIGHTLY DECREASED
[2023-01-08 08:05] LABS: ANISOCYTOSIS SLIGHT; PLATELET MORPHOLOGY COMMENT NORMAL; POIKILOCYTOSIS SLIGHT; RBC MORPHOLOGY COMMENT NORMAL
[2023-01-08] MEDS: PREGABALIN 50 MG CAP PO SCH ×2 (08:53→17:11)
[2023-01-08] MEDS: METOLAZONE 5 MG TAB PO SCH (08:56)
[2023-01-08] MEDS: IRON SUCROSE 100 MG in SODIUM CHLORIDE 0.9% 100 ML IV SCH (10:54)
[2023-01-08] MEDS: ACETAZOLAMIDE SODIUM 500 MG/VIAL IV SCH ×3 (14:32→21:07)
[2023-01-08] MEDS: ATORVASTATIN 20 MG TAB PO SCH (20:19)
[2023-01-09] VITALS: BP 123/54
[2023-01-09 04:00] VITALS: BP 119/58
[2023-01-09] MEDS: ACETAZOLAMIDE SODIUM 500 MG/VIAL IV SCH (05:28)
[2023-01-09 05:57] LABS: BASOPHILS # (AUTO) 0.1 (0.0-0.1); BASOPHILS % 0.8 % (0.0-1.0); EOSINOPHILS # (AUTO) 0.4 (0.0-0.4); EOSINOPHILS % 5.8 % (0.0-6.0); HEMATOCRIT 31.2 % (38.2-49.6); HEMOGLOBIN 8.7 g/dL (14.0-18.0); LYMPHOCYTES # (AUTO) 1.7 (1.0-3.2); LYMPHOCYTES % 26.6 % (18.0-39.1); MEAN CORPUSCULAR HEMOGLOBIN 25.1 pg (28-32); MEAN CORPUSCULAR HGB CONC 27.9 g/dL (31-35); MEAN CORPUSCULAR VOLUME 90.2 fL (81-99); MONOCYTES % 14.6 % (4.4-11.3); NEUTROPHILS # (AUTO) 3.4 (2.1-6.9); NEUTROPHILS % 51.9 % (38.7-80.0); PLATELET COUNT 145 x10e3/uL (140-360); RED BLOOD COUNT 3.46 x10e6/uL (4.3-5.7); RED CELL DISTRIBUTION WIDTH 23.4 % (11.7-14.4)
[2023-01-09 06:20] LABS: ALBUMIN 3.1 g/dL (3.5-5.0); ALBUMIN/GLOBULIN RATIO 0.8 (0.8-2.0); ANION GAP 13.6 mmol/L (8-16); CALCIUM 9.5 mg/dL (8.4-10.2); CREATININE, SERUM 1.22 mg/dL (0.72-1.25); POTASSIUM 3.6 mmol/L (3.5-5.1)
[2023-01-09 07:29] LABS: ANISOCYTOSIS MODERATE; HYPOCHROMASIA MODERATE; OVALOCYTES FEW; PLATELET ESTIMATE ADEQUATE; PLATELET MORPHOLOGY COMMENT NORMAL; RBC MORPHOLOGY COMMENT ABNORMAL
[2023-01-09 08:23] VITALS: BP 118/60
[2023-01-09 08:47] VITALS: BP 118/60
[2023-01-09] MEDS ORDERED: AZITHROMYCIN 250 MG TAB PO SCH (09:00)
[2023-01-09] MEDS: IRON SUCROSE 100 MG in SODIUM CHLORIDE 0.9% 100 ML IV SCH (09:23)
[2023-01-09] MEDS: PREGABALIN 50 MG CAP PO SCH (09:23)
[2023-01-09 12:26] VITALS: BP 109/50
[2023-01-09] MEDS ORDERED: ULTRAM 50MG50 MG PO (15:09)
[2023-01-09 15:29] VITALS: BP 125/55
== END 2023-01-09 15:42 | disposition home or self-care (01) | DRG 725 ==
LOC: ER 21:35 → ERHOLD 22:53 → MED/SURG2 01-03 10:18
PROVIDERS: ADMIT Internal Medicine; ATTEND Internal Medicine
PROC: 30233N1 Transfusion of Nonautologous Red Blood Cells into Peripheral Vein, Percutaneous Approach (ICD-10-PCS; principal; 2023-01-03)
PROC: 0W9G3ZZ Drainage of Peritoneal Cavity, Percutaneous Approach (ICD-10-PCS; 2023-01-06)
PROC: 0VTTXZZ Resection of Prepuce, External Approach (ICD-10-PCS; 2023-01-07)
PROC: 3E0T3BZ Introduction of Anesthetic Agent into Peripheral Nerves and Plexi, Percutaneous Approach (ICD-10-PCS; 2023-01-07)
PROC: 0TJB8ZZ Inspection of Bladder, Via Natural or Artificial Opening Endoscopic (ICD-10-PCS; 2023-01-07)
DX: N40.1 Benign prostatic hyperplasia with lower urinary tract symptoms (principal); I50.33 Acute on chronic diastolic (congestive) heart failure; N13.8 Other obstructive and reflux uropathy; I13.0 Hypertensive heart and chronic kidney disease with heart failure and stage 1 through stage 4 chronic kidney disease, or unspecified chronic kidney disease; N17.9 Acute kidney failure, unspecified; R18.8 Other ascites; E87.5 Hyperkalemia; E78.5 Hyperlipidemia, unspecified; R33.9 Retention of urine, unspecified; K42.9 Umbilical hernia without obstruction or gangrene; D63.1 Anemia in chronic kidney disease; D50.9 Iron deficiency anemia, unspecified; N18.9 Chronic kidney disease, unspecified; I25.10 Atherosclerotic heart disease of native coronary artery without angina pectoris; Z20.822 Contact with and (suspected) exposure to COVID-19; Z85.46 Personal history of malignant neoplasm of prostate; Z85.51 Personal history of malignant neoplasm of bladder; Z99.81 Dependence on supplemental oxygen; Z90.49 Acquired absence of other specified parts of digestive tract; Z95.1 Presence of aortocoronary bypass graft; Z95.810 Presence of automatic (implantable) cardiac defibrillator; Z87.891 Personal history of nicotine dependence; Z79.82 Long term (current) use of aspirin; Z90.5 Acquired absence of kidney; Z89.611 Acquired absence of right leg above knee; Z95.5 Presence of coronary angioplasty implant and graft; Z79.02 Long term (current) use of antithrombotics/antiplatelets
CPT/HCPCS: 36415; 49083; 51798; 71045; 74150; 74470; 76770; 80048; 80053; 81001; 82040; 82570; 82728; 82948; 83540; 83880; 84132; 84156; 84157; 84466; 85007; 85025; 85027; 85610; 85730; 86850; 86900; 86920; 87070; 87205; 88112; 88300; 88304; 88305; 88342; 89051; 93005; 93306; 94640; 94799; 99252; 99284; C1729; J0610; J0696; J1756; J1940; J2001; J2405; J7030; J7050; J7799; P9016